=== PATIENT | female | born 2000 | race Caucasian/White ===

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

== ENCOUNTER 2021-06-17 17:10 | Emergency (ER) | payer BC, OTHER, SELFPAY ==
--- NOTE | ~2021-06-17 | US_ITS ---
EXAMINATION: US OB <=14 wk fetus w TV DATE: 06/17/2021 23:26 INDICATION: Bleeding during first trimester TECHNIQUE: Real-time pelvic transabdominal and transvaginal ultrasound was performed. COMPARISON: None. FINDINGS: The uterus measures 6.6 x 5.4 x 3.8 cm. There is an intrauterine gestational sac. There is a 1.3 x 1.0 x 0.9 cm hypoechoic area adjacent to the gestational sac. A yolk sac is identified. Feta l heart motion is identified measuring 133 beats per minute (bpm) by M-mode Doppler. The crown rump length measures 6 mm , which correlates with an estimated gestational age of 6 weeks and 3 day(s ) (+/-) 4 day(s). The ovaries are not visualized however no adnexal abnormality is seen. There is no free fluid in the pelvis. IMPRESSION: 1. Live intrauterine with an estimated gestational age of 6 weeks and 3 day(s) (+/-) 4 day( s) and an estimated delivery date of 02/07/2022. 2. Complex hypoechoic area adjacent to the gestational sac which could reflect subchronic hematoma or possible failed twin . Reviewed, dictated and finalized at location [facility]. 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 Live intrauterine with an estimated gestational age of 6 weeks and 3 day(s) (+/-) 4 day(s) and an estimated delivery date of 02/07/2022. 2. Complex hypoechoic area adjacent to the gestational sac which could reflect subchronic hematoma or possible failed twin .
[2021-06-17 18:00] VITALS: BP 127/83; PULSE 110; RESP 16; TEMP 36.7; O2SAT 100
--- NOTE | 2021-06-17 20:15 | ED.FEMALEGU ---
HPI - Female Genitourinary General Chief complaint: Vaginal Bleeding Stated complaint: /vb Time Seen by Provider: 06/17/21 20:14 Source: patient Mode of arrival: ambulatory Limitations: no limitations History of Present Illness HPI Narrative: Patient is 20 years old white female, presents with vaginal bleeding and lower abdominal cramps. Last menstrual period was April 25, 2021. Patient is 0 para 0 0. Patient reports vomiting. Patient still me that home test came back positive. Patient is not vaccinated for COVID. Patient does not know how much bleeding she have, does not use pads, denies any blood clots. Related Data Allergies Allergy/AdvReac Type Severity Reaction Status Date / Time No Known Allergies Allergy Unknown Uncoded 06/17/20 21:04 Review of Systems Review of Systems: CONSTITUTIONAL: Denies fever, chills, or sweats. EYES: Denies visual changes, redness, or discharge. ENT: Denies rhinorrhea, congestion, sore throat, or otalgia. CARDIOVASCULAR: Denies chest pain, palpitations, or edema. RESPIRATORY: Denies cough or dyspnea. GASTROINTESTINAL: Denies abdominal pain, nausea, vomiting, or diarrhea. GENITOURINARY: Denies dysuria or hematuria. SKIN: Denies rash or itching. MUSCULOSKELETAL: Denies back pain, joint pain, or myalgia. NEUROLOGIC: Denies headache, numbness, or weakness. PSYCHIATRIC: Denies anxiety or depression. PMFSH Past Medical History Medical History Ovarian cyst Surgical History Surgical History H/O ovarian cystectomy Family History Family History Grandparent Diabetes mellitus Hypertension Mother Hypertension Social History Social History Years smoked: 0 Smoking status: Current every day smoker Tobacco type: e-cigarettes/vaping Alcohol intake: never Substance use: current Substance use type: marijuana Last use: 06/17/2020 Gender identity (if verbalized by the patient): Female Spiritual care concerns: No Exam Narrative: General appearance: Well-developed, well-nourished Skin: Normal color Head: Normocephalic, nontraumatic Eyes: Clear conjunctiva ENT: Oropharynx normal, ears normal, nose normal Neck: Supple, nontender Chest and respiratory: Airway patent, no respiratory distress, no accessory muscle use Heart: Regular rate/rhythm Abdomen: Soft, nontender, no organomegaly, quiet bowel sounds Vascular: Normal peripheral pulses, normal capillary refill. Musculoskeletal: Normal range of motion, nontender back Neurologic: Alert and oriented ?3, CRYSTALLOGRAPHER is normal as tested, no gross motor deficit : External Female Exam: normal external appearance and other (No blood in the vaginal pouch) Speculum Exam - Vagina: normal appearance of the vagina Speculum Exam - Cervix: normal appearance of the cervix Bimanual exam- vagina & uterus: normal bimanual exam Bimanual Exam- Adnexa, other: normal adnexae Course Course Emergency Course: Stable Vital Signs Vital signs: Vital Signs Temperature 36.7 C 06/17/21 18:00 Pulse Rate 110 H 06/17/21 18:00 Respiratory Rate 16 06/17/21 18:00 Blood Pressure 127/83 06/17/21 18:00 Pulse Oximetry 100 06/17/21 18:00 Temperature 36.7 C 06/17/21 18:00 Pulse Rate 92 06/17/21 23:44 Respiratory Rate 16 06/17/21 23:44 Blood Pressure 102/69 06/17/21 23:44 Pulse Oximetry 96 06/17/21 23:44 MDM - Female Genitourinary MDM Narrative Medical decision making narrative: Vaginal bleeding, ectopic
[2021-06-17] MEDS: ONDANSETRON INJ 4 MG/2 ML VIAL (20:30)
[2021-06-17] MEDS: SODIUM CHLORIDE 0.9% IV 1,000 ML 999 ML (20:30)
[2021-06-17 20:52] LABS: Basophils Percent Auto 0.2 % (0.2-1.2); Hematocrit 40.4 % (37.0-47.0); Hemoglobin 13.6 g/dL (12.0-15.0); Immature Granulocyte Absolute 0.02 K/mm3 (0.00-0.031); Immature Granulocyte Percent A 0.3 % (0-0.5); Lymphocytes Absolute Auto 0.46 K/mm3 (0.9-3.2); Lymphocytes Percent Auto 7.9 % (18.3-44.2); Mean Corpuscular HGB Conc 33.7 g/dl (32-36); Mean Corpuscular Volume 83.3 fl (80-100); Mean Platelet Volume 8.8 fl (7.4-10.4); Monocytes Absolute Auto 0.9 K/mm3 (0.1-0.6); Monocytes Percent Auto 15.1 % (2.6-8.5); Neutrophils Absolute Auto 4.5 K/mm3 (1.3-6.7); Neutrophils Percent Auto 76.5 % (45.5-73.1); Platelet Count Result 267 k/mm3 (150-375); Red Blood Count 4.85 M/mm3 (4.2-5.4); White Blood Count 5.8 K/mm3 (4.5-10.0)
[2021-06-17 21:20] VITALS: BP 132/74; PULSE 100; RESP 18; O2SAT 99
[2021-06-17] MEDS: SODIUM CHLORIDE 0.9% IV 1,000 ML 999 ML IV CONT (21:59)
--- NOTE | 2021-06-17 22:12 | PC.NURSE ---
THIS MARKETING SERVICES VICE PRESIDENT CALLED RADIOLOGY TO [facility] TO COME IN FOR ULTRASOUND TO RULE OUT ECTOPIC @[id number].
[2021-06-17 23:44] VITALS: BP 102/69; PULSE 92; RESP 16; O2SAT 96
[2021-06-18] MEDS: AMOXICILLIN 500 MG CAPSULE PO (01:05)
[2021-06-18] MEDS: AMOXICILLIN 250 MG CAP PO (01:06)
[2021-06-18 01:08] VITALS: BP 111/66; PULSE 73; RESP 16; O2SAT 100
== END 2021-06-18 01:10 | disposition home or self-care (01) ==
PROVIDERS: Emergency Provider Emergency Medicine; PCP Family Medicine
DX: O20.0 Threatened abortion (principal); O23.41 Unspecified infection of urinary tract in pregnancy, first trimester; Z3A.01 Less than 8 weeks gestation of pregnancy
CPT/HCPCS: 36415; 76801; 76817; 84702; 85025; 85461; 96361; 96374; 99284; A9270; J2405; J7030

== ENCOUNTER 2022-02-11 09:07 | Inpatient (IN) | payer OTHER, SELFPAY ==
--- NOTE | 2022-02-03 14:46 | PC.NURSE ---
Patient states she has rods and screws in back from neck to just above tailbone because of scoliosis--Dr Rivera talked with patient --Informed patient she would not be given epidural because of the rods in her back due to high possibility of infections if rods are exposed to air. Patient told she will be given pain med through IV during labor--Patient verbalized her understanding
[2022-02-11] VITALS (145 sets, daily range): BP systolic 118–146; BP diastolic 58–108; PULSE 57–122; RESP 12–16; TEMP 36.6–37.1; O2SAT 83–100; BMI 37.7
--- NOTE | 2022-02-11 09:07 | LDADM ---
This patient, Leanna Smalls, was admitted for SROM at 0200 this AM to Labor 106 on 02/11/22 at 09:07. Plans for labor, pain management and were discussed with patient. Patient/family oriented to hospital policies and general routines including ID bracelet, bed and alarms, visiting hours, pain management, procedures, bathroom and other care routines, personal items, smoking policy, room service/diet and guest tray routines, infant security routines, and visiting hours. Patient/Family are encouraged to report perceived risks to care and to ask questions if they do not understand what they are told or what they should do. See OBIX for further documentation.
--- NOTE | 2022-02-11 10:52 | PM.IMHP ---
H&P: HPI History of Present Illness Date/Time: 02/11/22 10:52 Chief Complaint: Labor at term Narrative: 21-year-old 1 para 0 with an EDC of 02/09/2022 confirmed by 8 week ultrasound presents with spontaneous rupture membranes of meconium fluid prior to admission has been uncomplicated she is positive for group B strep. [facility] Past Medical History Medical History Ovarian cyst Surgical History Surgical History H/O ovarian cystectomy Family History Family History Grandparent Diabetes mellitus Hypertension Mother Hypertension Social History Social History Years smoked: 0 Smoking status: Current every day smoker Tobacco type: e-cigarettes/vaping Alcohol intake: never Substance use: current Substance use type: marijuana Last use: 11/02/21 Gender identity (if verbalized by the patient): Female Spiritual care concerns: No Meds Home Medications and Allergies Home Medications Medication Instructions Recorded Confirmed Type prenat.vits,carla,[id number] 1 tablet PO DAILY 02/03/22 02/03/22 History Allergies Allergy/AdvReac Type Severity Reaction Status Date / Time hydrocortisone Allergy Unknown Verified 02/03/22 14:21 Vital Signs Vital Signs - 24 hr 02/11/22 10:39 02/11/22 10:44 02/11/22 10:45 Pulse Oximetry 99 100 100 02/11/22 10:50 02/11/22 10:51 Pulse Oximetry 100 99 Exam Const: General: cooperative, healthy appearing and comfortable Nutritional Appearance: average body habitus Cardio: Rate: regular rate Rhythm: regular rhythm GI: Inspection: normal to inspection : External Female Exam: normal external appearance Speculum Exam - Vagina: normal appearance of the vagina Speculum Exam - Cervix: normal appearance of the cervix ( 3Cm with meconium fluid FHTs reassuring) Assessment and Plan Assessment and plan (1) Term : Code(s): Z34.90 - Encounter for supervision of normal , unspecified, unspecified trimester Status: Acute (2) Group beta Strep positive: Code(s): B95.1 - Streptococcus, group B, as the cause of diseases classified elsewhere Status: Acute Plan spontaneous vaginal delivery is expected. She is not an epidural candidate due to the rods in her back. Group B strep prophylaxis is being undertaken. Will make peds aware of meconium-stained
[2022-02-11 11:12] LABS: Basophils Percent Auto 0.3 % (0.2-1.2); Eosinophils Absolute Auto 0.1 K/mm3 (0-0.3); Eosinophils Percent Auto 0.8 % (0-4.4); Hematocrit 34.2 % (37.0-47.0); Hemoglobin 11.1 g/dL (12.0-15.0); Immature Granulocyte Absolute 0.08 K/mm3 (0.00-0.031); Immature Granulocyte Percent A 0.6 % (0-0.5); Lymphocytes Absolute Auto 2.31 K/mm3 (0.9-3.2); Mean Corpuscular HGB Conc 32.5 g/dl (32-36); Mean Corpuscular Hemoglobin 27.6 pg (26-34); Mean Corpuscular Volume 85.1 fl (80-100); Mean Platelet Volume 9.2 fl (7.4-10.4); Monocytes Absolute Auto 1.1 K/mm3 (0.1-0.6); Monocytes Percent Auto 7.3 % (2.6-8.5); Neutrophils Absolute Auto 10.8 K/mm3 (1.3-6.7); Platelet Count Result 286 k/mm3 (150-375); Red Blood Count 4.02 M/mm3 (4.2-5.4); Red Cell Distribution Width 13.7 % (11.5-14.5); White Blood Count 14.4 K/mm3 (4.5-10.0)
[2022-02-11] MEDS: LACTATED RINGERS 1,000 ML 125 ML IV CONT ×3 (11:16→18:44)
[2022-02-11] MEDS: AMPICILLIN 2 GM/NS 100 ML 2 GM/100 ML BAG IVPB (11:16)
[2022-02-11] MEDS: OXYTOCIN 30 UNITS/NS 500 ML 30 UNITS/500 ML BAG IV CONT (11:28)
[2022-02-11 13:02] LABS: Amphetamine Screen Urine Negative (Negative); Barbiturate Screen Urine Negative (Negative); Benzodiazepines Screen Urine Negative (Negative); Cannabinoid Screen Urine Positive (Negative); Cocaine Screen Urine Negative (Negative); Methadone Screen Urine Negative (Negative); Opiate Screen Urine Negative (Negative); Phencyclidine Screen Urine Negative (Negative)
[2022-02-11] MEDS: ONDANSETRON INJ 4 MG/2 ML VIAL IV PUSH ×2 (14:25→19:39)
[2022-02-11] MEDS: AMPICILLIN 1 GM/NS 50 ML 1 GM/50 ML BAG IVPB ×3 (15:33→23:39)
[2022-02-11] MEDS: fentaNYL CITRATE INJ (*CRX) 100 MCG/2 ML VIAL 50 MCG IV PUSH ×2 (16:04→17:46)
[2022-02-11] MEDS: fentaNYL CITRATE INJ (*CRX) 100 MCG/2 ML VIAL IV PUSH ×4 (19:24→23:38)
[2022-02-11] MEDS: diphenhydrAMINE HCl INJ 50 MG/ML VIAL 25 MG IV PUSH (20:45)
[2022-02-12] VITALS (26 sets, daily range): BP systolic 77–140; BP diastolic 42–123; PULSE 57–132; RESP 16–18; TEMP 36.2–36.8; O2SAT 97–100
[2022-02-12] MEDS: LACTATED RINGERS 1,000 ML 125 ML IV CONT (00:19)
[2022-02-12] MEDS: fentaNYL CITRATE INJ (*CRX) 100 MCG/2 ML VIAL IV PUSH ×2 (01:29→02:45)
[2022-02-12] MEDS: ONDANSETRON INJ 4 MG/2 ML VIAL IV PUSH (01:35)
[2022-02-12] MEDS: AMPICILLIN 1 GM/NS 50 ML 1 GM/50 ML BAG IVPB (03:28)
[2022-02-12] MEDS: METHYLERGONOVINE MALEATE 0.2 MG/ML VIAL IM (04:18)
--- NOTE | 2022-02-12 04:30 | PM.OBPRVD ---
OB - Delivery Note Procedure Delivery date: 02/12/22 Events: Positive Group B Strep (GBS) Induction method: None Delivery augmentation: Pitocin Delivery monitor: External Uterine and Internal FHT Route of delivery: Episiotomy description: None Laceration Description: None Quantitative Blood Loss (ml): 359 Anesthesia type: None Disposition: Floor [place] Baby Date of : 02/12/22 Time of : 04:06 Weeks of gestation at delivery: 40 Infant gender: Female Weight (pounds): 7 Weight (ounces): 6 presentation: vertex position: Right Occiput Anterior Placenta delivery description: Spontaneous Cord Vessel Description: 3 Vessels score one minute: 9 score five minutes: 10 Narrative: amp x 5 for gbs
[2022-02-12] MEDS: OXYTOCIN 30 UNITS/NS 500 ML 30 UNITS/500 ML BAG 125 UNITS IV CONT (04:49)
[2022-02-12] MEDS: ACETAMINOPHEN 325 MG TABLET 650 MG PO (05:34)
[2022-02-12 07:04] LABS: Rapid Plasma Reagin Non-Reactive (NonReactive)
--- NOTE | 2022-02-12 08:12 | OBPPTRN ---
Patient transferred to post room #288 via wheelchair. Support person present. Oriented to unit, room, information board, rooming in, admission packet and security measures. Patient verbalizes understanding.
[2022-02-12] MEDS: IBUPROFEN 600 MG TABLET PO (08:32)
[2022-02-12] MEDS: BENZOCAINE 20% AER SPR (*SP) 56 GM CAN 1 SPRAY TOPICAL (08:33)
--- NOTE | 2022-02-12 21:00 | PC.NURSE ---
Patient viewed the discharge video Mother & Baby Care, The First Two Weeks . Patient was given the opportunity and encouraged to ask questions. Patient verbalized understanding of information shared and has been given the mother/baby guide for home reference.
[2022-02-13] VITALS: BP 132/72; PULSE 98; RESP 18; TEMP 35.9
[2022-02-13 05:56] LABS: Hematocrit 22.4 % (37.0-47.0); Hemoglobin 7.2 g/dL (12.0-15.0)
[2022-02-13 08:00] VITALS: BP 124/74; PULSE 102; RESP 16; TEMP 36.4; O2SAT 100
--- NOTE | 2022-02-13 09:46 | PM.OBPNVD ---
OB - PN: Subj Subjective Date/time seen: 02/13/22 09:46 Narrative: Pain OK. OB - PN: Obj Data Labs CBC & Chem 7: 02/13/22 05:39 Labs: Laboratory Results - last 24 hr 02/13/22 05:39 Hgb 7.2 L D Hct 22.4 L OB - PN A/P Plan Comments: A: PPD#1, doing well. P: Routine care. Plan home tomorrow. Exam Psych: Other: AVSS ABD soft, nontender, fundus firm EXT nontender
[2022-02-13] MEDS: DOCUSATE SODIUM 100 MG CAPSULE PO ×2 (10:10→17:11)
[2022-02-13] MEDS: POLYSACCHARIDE IRON COMPLEX 150 MG CAPSULE PO ×2 (10:10→17:11)
[2022-02-13] MEDS: IBUPROFEN 600 MG TABLET PO ×2 (13:52→19:25)
[2022-02-13 20:30] VITALS: BP 127/70; PULSE 90; RESP 18; TEMP 36.8; O2SAT 100
[2022-02-14 08:25] VITALS: BP 126/82; PULSE 86; RESP 16; TEMP 36.6; O2SAT 100
[2022-02-14] MEDS: DOCUSATE SODIUM 100 MG CAPSULE PO (08:27)
[2022-02-14] MEDS: POLYSACCHARIDE IRON COMPLEX 150 MG CAPSULE PO (08:27)
[2022-02-16 11:19] VITALS: BP 127/81; PULSE 92; RESP 16; TEMP 36.8; O2SAT 100
--- NOTE | 2022-02-18 07:41 | PM.DS ---
DS: Admitting Diagnosis Discharge Date 02/14/22 Admitting Diagnosis term iup/gbs pos DS: Discharge Diagnosis Discharge Diagnosis (1) Group beta Strep positive: Code(s): B95.1 - Streptococcus, group B, as the cause of diseases classified elsewhere Status: Acute (2) Term : Code(s): Z34.90 - Encounter for supervision of normal , unspecified, unspecified trimester Status: Acute DS: Summary Hospital Course Reason for hospitalization: Her with group B strep Hospital Course: Patient was admitted underwent spontaneous vaginal delivery group B strep prophylaxis. 48hour course was unremarkable. She remained afebrile. She was up, ambulating, generally Time Spent with Patient Time attestation: Total time spent providing and/or coordinating discharge services: Discharge Plan Discharge Attending physician on discharge: Andrew Alvares Consulting providers: Yousif Mistry Discharging Clinician: Andrew Alvares Patient Disposition: Home, Self-Care Activity: pelvic rest Diet: regular Discharge Instructions: Education: Mom and Baby Guide Given to: Mother Follow-Up: Call your delivering provider's office for an appointment to be seen in: 6 Weeks Mom and baby should come to the [facility] for the follow-up appointment. Appointment Date/Time: February 16, 2022 at 11:00 am What to expect at your follow-up visit: Blood Pressure Check Physical Assessment Call [phone] if you are unable to keep your appointment time. BREAST CARE: * Wear a snug supportive bra. * For engorgement discomfort: Bottle Feeding: * May apply ice packs PERINEAL CARE: * Until bleeding stops, use your angelique bottle after urinating * Change your pad frequently throughout the day * You may take sitz baths several times a day (fill your bathtub with warm water and soak for 20 minutes.) Do NOT bathe in the water * No tub baths until seen by your physician - You may shower ACTIVITY: * Rest as much as possible. * Do not exercise or lift anything heavier than your baby (such as laundry or other children.) * Avoid stairs or driving as much as possible. * Do not put anything into the vagina. No douching, tampons, or sexual activity until seen by physician. NOTIFY PHYSICIAN IF YOU HAVE ANY QUESTIONS OR IF ANY OF THE FOLLOWING SYMPTOMS OCCUR: * If your episiotomy or incision becomes red, swollen, or more painful than what you have experienced in the hospital. * If your vaginal bleeding becomes foul smelling. * If your vaginal bleeding becomes more heavy than a period or if your bleeding changes from pink to bright red. However, you may pass an occasional walnut-sized clot once or twice for the first week . * If you experience a sharp, shooting pain in you calves. * If you discover a hard, reddened area on your breast or if you experience flu-like symptoms. DIET: * Eat regular, well-balanced meals. * Drink plenty of fluids daily. Call or return if temperature above 100.4? F, increased abdominal pain, increased vaginal bleeding or any new problems. Patient Instructions: Antibiotic Form Stand Alone Forms: General Discharge Information Follow-up/Referrals: Andrew Alvares MD [Physician] - 6 Weeks Discharge Medications: New ferrous sulfate 325 mg (65 mg iron) tablet 325 mg PO DAILY Qty: 30 0RF ibuprofen 600 mg tablet 600 mg PO Q6H PRN (Reason: cramps) Qty: 30 0RF Continued prenat.vits,carla,[id number] Tablet 1 tablet PO DAILY Date of admission: 02/11/22 09:07 Primary Care Provider: PHYSICIAN,BURGLAR ALARM INSTALLER Admitting Provider: Andrew Alvares Attending physician on admission: Andrew Alvares Condition: Stable
== END 2022-02-14 10:24 | disposition home or self-care (01) | DRG 560 ==
LOC: ANHLDR 10:14 → ANHOB2 02-12 08:16
PROVIDERS: Admitting Provider Obstetrics & Gynecology; Visit Provider Obstetrics & Gynecology
DX: O99.824 Streptococcus B carrier state complicating childbirth (principal); O77.0 Labor and delivery complicated by meconium in amniotic fluid; O99.334 Smoking (tobacco) complicating childbirth; F17.290 Nicotine dependence, other tobacco product, uncomplicated; O62.3 Precipitate labor; O76 Abnormality in fetal heart rate and rhythm complicating labor and delivery; Z3A.40 40 weeks gestation of pregnancy; Z37.0 Single live birth
CPT/HCPCS: 36415; 80307; 84112; 85014; 85018; 85025; 86592; 86850; 86900; 86901; A9270; J0290; J1200; J2210; J2405; J2590; J3010; J7120

== ENCOUNTER 2023-05-26 16:58 | Outpatient (RCR) | payer OTHER, SELFPAY ==
--- NOTE | 2023-05-31 14:52 | OPREHPOC ---
Outpatient Therapy Plan of Care This is a Multidisciplinary Plan of Care that may contain components documented by all disciplines (PT, OT, and ST.) PT Problem 1 PT Problem #1 Knowledge Deficit PT Goal 1 Goal independent and compliant with HEP Target Visit 6 PT Problem 2 PT Problem #2 Pain PT Goal 1 Goal decrease pain at worst to 6/10 or less in the lower back and R hip. Target Visit 12 PT Problem 3 PT Problem #3 Impaired Strength PT Goal 1 Goal 1. 4+/5 or better bilateral hip strength overall 2. patient to perform 10 bridges in supine to neutral hip position Target Visit 12 PT Problem 4 PT Problem #4 Impaired Range of Motion PT Goal 1 Goal 1. improve lumbar flexion to ankle without increased pain 2. improve lumbar extension, sidebending to 20 degrees each Target Visit 12 PT Problem 5 PT Problem #5 Impaired Functional Mobil PT Goal 1 Goal oswestry to diaply less than 50% functional deficits patient to get on the ground to play with child for 1 hour improve step/stride length bilaterally to improve gait mechanics, speed, and endurance Target Visit 12
--- NOTE | 2023-05-31 14:52 | PTOPEVAL1 ---
Assessment and note entered by JT File, PT Evaluation Information Assessment Status Evaluation Diagnosis scoliosis Onset 05/20/23 Subjective Information patient reports she is having really bad spine and hip pain. she reports mostly the R hip is the worst. she reports the pain prevents her from moving much or wanting to move. she reports she has a 1 year old at home she is unable to do much with due to the pain in her back and hips. she reports she is unable to get on the floor, bend over the tub, or lift her much due to the pain. she reports she has not had any xrays. she reports she is seeing a specialist in june. she reports she is seeing Dr. Bassam Casillas. she reports she has been having back issues since she was 14. she reports she had surgery for scoliosis (14 yo and 18 yo). she reports she dropped out of school since the pain was so bad. she reports she is unable to work due to the pain, and is really struggling. she reports she is nervous about therapy because in the past it made her pain worse . she is taking a muscle relaxor and anti- inflamatory that was prescribed by her PCP. Assessment PT Clinical Summary ms. valenzuela is 22 yo woman who presents to skilled PT services for evaluation and treatment of lower back and R hip pain. she presents today with core and LE weakness, decreased rom, and severe pain in the lower back limiting her performance of home activities/interaction with her daughter. she would benefit from continued skilled PT to address her objective/functional deficits to improve her quality of life. Plan of Care Interventions Electrical Stimulation,Gait Training,Hot Pack/Cold Pack,Manual Therapy,Neuro Re-education,Patient/ Caregiver Educati,Therapeutic Activities, Therapeutic Exercise PT Services Indicated Yes Treatment Frequency and 2x weekly for 12 visits Duration These treatments will address the objective and functional deficits as defined above. The patient will be advanced safely and appropriately in order for the patient to progress towards his/her prior level of function. Additional exercises will be introduced and as well as a comprehensive home exercise program upon discharge, if needed, ?to ensure carryover of functional gains achieved in the clinic. This treatment plan has been reviewed and agreement upon by the patient.
--- NOTE | 2023-07-08 08:28 | OPREHPOC ---
Outpatient Therapy Plan of Care This is a Multidisciplinary Plan of Care that may contain components documented by all disciplines (PT, OT, and ST.) PT Problem 1 PT Problem #1 Knowledge Deficit PT Goal 1 Goal independent and compliant with HEP Target Visit 6 Progress Met PT Problem 2 PT Problem #2 Pain PT Goal 1 Goal decrease pain at worst to 6/10 or less in the lower back and R hip. Target Visit 12 Progress Not Met PT Problem 3 PT Problem #3 Impaired Strength PT Goal 1 Goal 1. 4+/5 or better bilateral hip strength overall 2. patient to perform 10 bridges in supine to neutral hip position Target Visit 12 Progress Not Met PT Problem 4 PT Problem #4 Impaired Range of Motion PT Goal 1 Goal 1. improve lumbar flexion to ankle without increased pain 2. improve lumbar extension, sidebending to 20 degrees each Target Visit 12 Progress Not Met PT Problem 5 PT Problem #5 Impaired Functional Mobil PT Goal 1 Goal oswestry to diaply less than 50% functional deficits patient to get on the ground to play with child for 1 hour improve step/stride length bilaterally to improve gait mechanics, speed, and endurance Target Visit 12 Progress Not Met
--- NOTE | 2023-07-08 08:31 | PTOPDC ---
Assessment and note entered by Dione Lucas DPT Evaluation Information Assessment Status Discharge Diagnosis scoliosis Onset 05/20/23 Subjective Information patient reports that HEP tends to relieve pain. she reports her function at home is about the same . She reports she saw a specialist who gave her new pain meds but they are making her sick. She does not have an appointment with pain management until October. Reported Pain Level Pain Score 6: Self Report Assessment PT Clinical Summary Ms. Smalls was seen for 10 visits of skilled PT. She continued to have significant pain and limitations with all daily activities. She has not met any goals during POC. She is independent with HEP. She will be discharged at this time due to limited progress made. Plan of Care PT Services Indicated No
== END 2023-07-07 15:14 | disposition home or self-care (01) ==
LOC: CHSPT 16:58
PROVIDERS: PCP Nurse Practitioner; Visit Provider Nurse Practitioner
DX: M41.9 Scoliosis, unspecified (principal); M54.9 Dorsalgia, unspecified
CPT/HCPCS: 97014; 97110; 97140; 97162; G0283

== ENCOUNTER 2023-11-09 08:15 | Emergency (ER) | payer OTHER, SELFPAY ==
[2023-11-09] VITALS (9 sets, daily range): BP systolic 104–134; BP diastolic 74–86; PULSE 56–105; RESP 14–24; TEMP 36.6–36.8; O2SAT 98–100
--- NOTE | 2023-11-09 08:25 | ED.ALLEREA ---
HPI - Allergic Reaction General Chief complaint: Allergic Reaction Stated complaint: FACIAL SWELLING, N-V Time Seen by Provider: 11/09/23 08:24 Source: patient Mode of arrival: ambulatory Limitations: no limitations History of Present Illness HPI narrative: 23-year-old female with Scoliosis status post corrective surgery, no prior history of allergies, atopy presents to the ER with -- erythematous rash on the face with itching which started this morning. The patient took 1 dose of Celebrex last night. -- nausea with 1 episode of vomiting -- numbness and tingling of her fingers. The patient is hyperventilating. Blood pressure is stable. No wheezing. No throat or tongue swelling. No abdominal pain. MD complaint: allergic reaction and facial swelling Onset (ago): hour(s) ( 2 hours) Exposure: medication ( patient took Celebrex last night) Symptoms: rash, itching and facial swelling Severity: moderate Treatment prior to arrival: benadryl Previous Allergic Reaction History: none Related Data Allergies Allergy/AdvReac Type Severity Reaction Status Date / Time celecoxib Allergy Hives Verified 11/09/23 08:21 hydrocortisone Allergy Unknown Verified 11/09/23 08:21 Review of Systems Constitutional: Constitutional: Reports as per HPI and Reports no additional constitutional complaints Eyes: Eyes: Reports as per HPI and Reports no additional eye complaints ENT: Reports system reviewed and no additional complaints, except as documented and Reports as per HPI Cardiovascular: Cardiovascular: Reports as per HPI and Reports no additional cardiovascular complaints Respiratory: Respiratory: Reports as per HPI and Reports no additional respiratory complaints Gastrointestinal: Gastrointestinal: Reports as per HPI, Reports no additional gastrointestinal complaints, Reports nausea and Reports vomiting Genitourinary: Genitourinary: Reports no additional female genitourinary complaints and Reports as per HPI Musculoskeletal: Musculoskeletal: Reports no additional musculoskeletal complaints and Reports as per HPI Integumentary/Breasts: Comments: erythematous rash on the face with itching Neurologic: Reports system reviewed and no additional complaints, except as documented and Reports as per HPI Psychiatric: Psychiatric: Reports no additional psychiatric complaints and Reports as per HPI Endocrine: Endocrine: Reports no additional endocrine complaints and Reports as per HPI Hematologic/Lymphatic: Hematologic/Lymphatic: Reports no additional hematologic/lymphatic complaints and Reports as per HPI Allergic/Immunologic: Allergic/Immunologic: Reports no additional allergic/immunologic complaints and Reports as per HPI [facility] Past Medical History Medical History Ovarian cyst Surgical History Surgical History H/O ovarian cystectomy Family History Family History Grandparent Diabetes mellitus Hypertension Mother Hypertension Father Depression Alcoholism Social History Social History Smoking packs per day: 1 Smoking cigarettes per day: 20.0 Years smoked: 1 Smoking pack-years: 1.00 Smoking status: Current every day smoker Tobacco type: e-cigarettes/vaping Alcohol intake: never Substance use: current Substance use type: marijuana Do You Feel Safe in your Home?: Yes Lack of Transportation: No Lack of Food: Never True Current Housing: I Have Housing Concerned About Future Housing: No Difficulty Paying Gas/Electric Bills: No Difficulty Paying for Meds: No Currently Unemployed: No Education: Decline to Answer Difficulty w/ Childcare or Family Care: No Gender identity (if verbalized by the patient): Female Spiritual care concerns: No Exam Narrative:
[2023-11-09] MEDS: diphenhydrAMINE HCl INJ 50 MG/ML VIAL 25 MG IM (08:34)
[2023-11-09] MEDS: methylPREDNISolone SOD SUCC 125 MG VIAL IM (08:34)
[2023-11-09] MEDS: FAMOTIDINE 20 MG TABLET PO (08:38)
== END 2023-11-09 09:33 | disposition home or self-care (01) ==
PROVIDERS: Emergency Provider Internal Medicine Critical Care Medicine
DX: L23.9 Allergic contact dermatitis, unspecified cause (principal); F17.290 Nicotine dependence, other tobacco product, uncomplicated
CPT/HCPCS: 96372; 99284; A9270; J1200; J2919

== ENCOUNTER 2023-11-19 09:11 | Outpatient (CLI) | payer OTHER, SELFPAY ==
--- NOTE | ~2023-11-19 | XR_ITS ---
XR hip BI 2V w AP pelvis DATE: 11/19/2023 10:24 INDICATION: Chronic bilateral hip pain TECHNIQUE: AP pelvis. AP and lateral views of each hip. COMPARISON: None FINDINGS: Pedicle screws and rods are noted at L4, with interval disc fusion at L3-4. Degenerative disease at L4-5. Normal alignment of the pubic symphysis and sacroiliac joints. No pelvic fracture or bone destruction. No fracture or dislocation, avascular necrosis or bone destruction of either hip. Hip joint spaces ar e symmetric and well preserved. IMPRESSION: No significant abnormality of the pelvis or either hip Reviewed, dictated and finalized at location A.
--- NOTE | ~2023-11-19 | XR_ITS ---
XR lumbar spine 6V w bending DATE: 11/19/2023 10:23 INDICATION: Chronic low back pain. Postlaminectomy syndrome. TECHNIQUE: AP, lateral, cone-down lateral lumbosacral and bilateral oblique views. Flexion and extens ion lateral views. COMPARISON: 03/22/2017 lumbar spine FINDINGS: Bilateral thoracolumbar spinal rods and pedicle screws are noted from T3 to L4. Interval interbody surgical fusion at L3-4 since 03/22/2017. Increased moderately severe degenerative disc disease at L4-5 since 03/22/2017. There is chronic widening of the posterior portion of the L4-5 disc space compared to the much more n arrowed anterior portion of the L4-5 interspace, also present on 03/22/2017. There is slightly increas ed posterior widening at the L4-5 interspace in flexion compared to extension. There is 23 degrees levoscoliosis measured from T11 to L4. No fracture or bone destruction of the lumbar spine is evident. The sacroiliac joints are intact. IMPRESSION: Interval interbody surgical fusion at L3-4 and increased moderately severe degenerative d isease at L4-5 since 03/22/2017 Bilateral T3-L4 spinal rods and pedicle screws 23 degrees levoscoliosis from T11 to L4 Reviewed, dictated and finalized at location A. IMPRESSION: Interval interbody surgical fusion at L3-4 and increased moderately severe degenerative disease at L4-5 since 03/22/2017 Bilateral T3-L4 spinal rods and pedicle screws 23 degrees levoscoliosis from T11 to L4
--- NOTE | ~2023-11-19 | MR_ITS ---
EXAMINATION: MR lumbar spine wo/w con DATE: 11/19/2023 10:28 INDICATION: Postlaminectomy syndrome, elsewhere classified. Low back pain. TECHNIQUE: Magnetic resonance imaging (MRI) of the lumbar spine was performed without and with 15 mL MultiHance intravenous contrast. COMPARISON: Lumbar spine MRI 12/13/2017, lumbar spine radiographs 11/19/2023 FINDINGS: There is 20 degrees levoscoliosis of thoracolumbar spine. There is focal kyphosis at L4-L5. There are changes of posterior fusion procedure from the thoracic spine to L4 with pedicle screws. T here are changes of anterior fusion procedure at L3-L4 with an interbody device. There is severely de creased disc height at L4-L5 with endplate remodeling. The distal spinal cord signal intensity is nor mal. The conus medullaris is at L1. The following disc levels are specifically discussed: L1-L2: The disc does not extend beyond the endplate margin. There is no facet joint hypertrophy. Ther e is no neural foraminal stenosis. There is no central canal stenosis. L2-L3: The disc does not extend beyond the endplate margin. There is no facet joint hypertrophy. Ther e is no neural foraminal stenosis. There is no central canal stenosis. L3-L4: There is no facet joint hypertrophy. There is no neural foraminal stenosis. There is no centra l canal stenosis. L4-L5: The disc is bulging and has an annular fissure. There is severe bilateral facet joint osteoart hritis. There is moderate bilateral neural foraminal stenosis. There is mild central canal stenosis. L5-S1: The disc does not extend beyond the endplate margin. There is severe bilateral facet joint ost eoarthritis. There is mild left neural foraminal stenosis. There is no central canal stenosis. IMPRESSION: 1. Severe lower lumbar spondylosis. 2. Anterior fusion procedure at L3-L4. 3. Posterior fusion procedure from the thoracic spine to L4. 4. Thoracolumbar levoscoliosis. Reviewed, dictated and finalized at location E.
--- NOTE | ~2023-11-19 | XR_ITS ---
XR thoracic spine 3V DATE: 11/19/2023 10:24 INDICATION: Chronic thoracic back pain TECHNIQUE: COMPARISON: None FINDINGS: Bilateral thoracic rods and pedicle screws. 29 degrees levoscoliosis measured from T1 to T5. 35 degrees dextroscoliosis measured from T5 to T11. No fracture or bone destruction is evident. No paraspinal soft tissue thickening. IMPRESSION: Bilateral thoracic rods and pedicle screws. 29 degrees levoscoliosis measured from T1 to T5. 35 degrees dextroscoliosis measured from T5 to T11. Reviewed, dictated and finalized at location A.
== END 2023-11-19 09:12 | disposition home or self-care (01) ==
LOC: CHSIMG 09:12
PROVIDERS: Visit Provider Anesthesiology Pain Medicine
DX: G89.29 Other chronic pain (principal); M47.817 Spondylosis without myelopathy or radiculopathy, lumbosacral region; M54.9 Dorsalgia, unspecified; M54.6 Pain in thoracic spine; M25.559 Pain in unspecified hip; M96.1 Postlaminectomy syndrome, not elsewhere classified; M41.85 Other forms of scoliosis, thoracolumbar region; M41.84 Other forms of scoliosis, thoracic region
CPT/HCPCS: 72072; 72114; 72158; 73521; A9577

== ENCOUNTER 2023-12-22 08:39 | Emergency (ER) | payer OTHER, SELFPAY ==
[2023-12-22 08:42] VITALS: BP 134/89; PULSE 114; RESP 20; TEMP 36.2; O2SAT 99
[2023-12-22 08:55] LABS: Appearance Urine Sl Cloudy (Clear); Bilirubin Urine Negative (Negative); Blood Urine 1+ (Negative); Color Urine Yellow (Yellow); Glucose Urine UA Negative (Negative); Ketones Urine Negative (Negative); Leukocyte Esterase Ur 3+ (Negative); Nitrate Urine Negative (Negative); Protein Urine Negative (Negative); Specific Grav Ur 1.015 (1.010-1.020); Urobilinogen Urine 0.2 mg/dL (0.2-1.0)
[2023-12-22 08:58] LABS: Add Urine Microscopic? YES
[2023-12-22 08:59] LABS: Bacteria Urine 2+ /hpf; Squamous Epithelial Cell Urine Few /hpf (Few); WBC Urine 16-20 /hpf (0-3)
--- NOTE | 2023-12-22 09:07 | ED.FEMALEGU ---
HPI - Female Genitourinary General Chief complaint: Urogenital-Female Stated complaint: vag d/c Time Seen by Provider: 12/22/23 08:52 Source: patient Mode of arrival: ambulatory Limitations: no limitations History of Present Illness HPI Narrative: This is a 23-year-old female with a suprapubic tenderness with a green discharge patient denies any high risk sexual exposure. There is no fever chills no flank pain no hematuria. No nausea vomiting no diarrhea constipation. MD elicited complaint: dysuria and vaginal discharge Onset (ago): day(s) Severity: mild Related Data Allergies Allergy/AdvReac Type Severity Reaction Status Date / Time celecoxib Allergy Hives Verified 12/22/23 08:48 hydrocortisone Allergy Unknown Verified 12/22/23 08:48 Review of Systems Review of Systems: All systems reviewed & are unremarkable except as noted in HPI and below PMFSH Past Medical History Medical History Ovarian cyst Surgical History Surgical History H/O ovarian cystectomy Family History Family History Grandparent Diabetes mellitus Hypertension Mother Hypertension Father Depression Alcoholism Social History Social History Smoking packs per day: 1 Smoking cigarettes per day: 20.0 Years smoked: 1 Smoking pack-years: 1.00 Smoking status: Current every day smoker Tobacco type: e-cigarettes/vaping Alcohol intake: never Substance use: current Substance use type: marijuana Do You Feel Safe in your Home?: Yes Lack of Transportation: No Lack of Food: Never True Current Housing: I Have Housing Concerned About Future Housing: No Difficulty Paying Gas/Electric Bills: No Difficulty Paying for Meds: No Currently Unemployed: No Education: Decline to Answer Difficulty w/ Childcare or Family Care: No Gender identity (if verbalized by the patient): Female Spiritual care concerns: No Exam Const: General: healthy appearing and no acute distress Nutritional Appearance: well nourished Orientation/consciousness: patient oriented x3 Neck: Neck: normal visual inspection Chest: Chest palpation & inspection: normal inspection of the chest Cardio: Rate: regular rate Rhythm: regular rhythm GI: GI Palp: Yes Soft to palpation and Yes Tenderness to palpation present (GI) : General: Yes Bladder palpation abnormal and Yes no CVA tenderness Back/Spine/Pelvis: Back: no CVA tenderness Skin: General skin exam: normal color Neuro: General: patient oriented x3 Course Course Emergency Course: Urinalysis shows some patient has you had urinary tract infection presenting antibiotics patient's pharmacy. Vital Signs Vital signs: Vital Signs Oxygen Delivery Room Air 12/22/23 08:39 Temperature 36.2 C L 12/22/23 08:42 Pulse Rate 114 H 12/22/23 08:42 Respiratory Rate 20 12/22/23 08:42 Blood Pressure 134/89 12/22/23 08:42 Pulse Oximetry 99 12/22/23 08:42 Oxygen Delivery Room Air 12/22/23 08:42 MDM - Female Genitourinary Lab Data Labs: Lab Results 12/22/23 Range/Units 08:48 Urine Color Yellow (Yellow) Urine Appearance Sl cloudy A (Clear) Urine pH 6.0 (5.0-8.0) Ur Specific Pratts 1.015 (1.010-1.020) Urine Protein Negative (Negative) Urine Glucose (UA) Negative (Negative) Urine Ketones Negative (Negative) Ur Blood (Man) 1+ H (Negative) Urine Nitrate Negative (Negative) Urine Bilirubin Negative (Negative) Urine Urobilinogen 0.2 (0.2-1.0) mg/dL Ur Leukocyte Esterase 3+ H (Negative) Urine RBC 3-5 H (0-2) /hpf Urine WBC 16-20 H (0-3) /hpf Ur Squamous Epith Cells Few (Few) /hpf Urine Bacteria 2+ H (None) /hpf C. trachomatis (PCR) Pending N. gonorrhoeae (PCR) Pending
[2023-12-22] MEDS: ACETAMINOPHEN 325 MG TABLET 650 MG PO (09:14)
[2023-12-23 20:31] LABS: Chlamydia trachomatis NOT DETECTED (NOT DETECTE); Neisseria gonorrhoeae PCR NOT DETECTED (NOT DETECTE)
--- NOTE | 2023-12-24 13:35 | PC.NURSE ---
[facility] urine culture report: Group b streptococcus isolated. Patient discharged on Macrobid and Flagyl, ERP Dr. Melendez states no change in treatment or any further treatment needed.
== END 2023-12-22 09:20 | disposition home or self-care (01) ==
LOC: CHSED 09:10
PROVIDERS: Emergency Provider Emergency Medicine
DX: N76.0 Acute vaginitis (principal); N30.00 Acute cystitis without hematuria; F17.290 Nicotine dependence, other tobacco product, uncomplicated
CPT/HCPCS: 81001; 87077; 87086; 87088; 87491; 87591; 99283; A9270

== ENCOUNTER 2024-02-07 07:13 | Emergency (ER) | payer OTHER, SELFPAY ==
--- NOTE | ~2024-02-07 | XR_ITS ---
XR lumbar spine 2-3V 02/07/2024 08:00 Indication: Lumbar pain. No new trauma. Procedure: 4 views lumbar spine Comparison: 11/19/2023 and 03/22/2020 seventh Findings: There is interbody surgical fusion at L3-4. There has been progression of degenerative hernandez ge at L4-5 with disc narrowing particularly anterior aspect of the disc space with developing surroun ding sclerosis. There are Raza rods traversing the lower thoracic spine extending to L4. The jimenes perior aspect of the rods and pedicle screws are not visualized. There is levoscoliosis centered at L 2. There is disc narrowing at all lumbar levels. There is fracture there the posterior elements at L4 which appears chronic. Impression: 1: Moderate-severe lumbar spondylosis with progression at L4-5. Reviewed, dictated and finalized at location B. Impression: 1: Moderate-severe lumbar spondylosis with progression at L4-5.
[2024-02-07 07:21] VITALS: BP 126/73; PULSE 73; RESP 22; TEMP 36.4; O2SAT 100
[2024-02-07] MEDS: dexAMETHasone SOD PHOS INJ 10 MG/ML 1 ML VIAL 6 MG IM (07:38)
[2024-02-07 07:41] LABS: Add Urine Microscopic? YES; Appearance Urine Clear (Clear); Bilirubin Urine Negative (Negative); Blood Urine Negative (Negative); Color Urine Light Yellow (Yellow); Glucose Urine UA Negative (Negative); Ketones Urine Negative (Negative); Leukocyte Esterase Ur Trace (Negative); Nitrate Urine Negative (Negative); Protein Urine Negative (Negative); Urobilinogen Urine 0.2 mg/dL (0.2-1.0)
[2024-02-07 07:45] LABS: RBC Urine None seen /hpf (0-2); WBC Urine 0-3 /hpf (0-3)
[2024-02-07 07:46] LABS: Bacteria Urine Trace /hpf; Pregnancy On Board Control Positive; Squamous Epithelial Cell Urine Moderate /hpf (Few); Urine Pregnancy Test Negative
[2024-02-07] MEDS: HYDROcodone/acetaminophen (*CRX) 5-325 MG TABLET 1 TAB PO (07:49)
[2024-02-07] MEDS: CYCLOBENZAPRINE HCL 10 MG TABLET PO (07:50)
--- NOTE | 2024-02-07 08:23 | ED.BACK ---
HPI - Back Pain/Injury General Chief Complaint: Back Pain/Injury Stated Complaint: back pain Time Seen by Provider: 02/07/24 07:20 Source: patient Mode of arrival: ambulatory Limitations: no limitations History of Present Illness HPI Narrative: Patient is a 23 year old female with a significant PMH of lumbar pain. She has chronic lumbar pain. She has spondylosis of the lumbar spine. She has had a spinal fusion of the lumbar spine done in the past. She says that the pain is a 10/10 today and hurts a lot. She did not have any inciting event. she most history today and his amlodipine today. She is seeing pain management and doing physical therapy as well. She has allergy type problems, teeth. She says she takes Tylenol for the pain. MD elicited complaint: back pain Pertinent past history: prior back pain and back surgery Onset (ago): day(s) Timing: constant Severity: severe Pain scale (0-10): 10 Quality: sharp and stabbing Location: lumbar spine Radiation: buttocks Exacerbating factors: movement Relieving factors: none Treatments prior to arrival: acetaminophen Work related injury: No Related Data Allergies Allergy/AdvReac Type Severity Reaction Status Date / Time celecoxib Allergy Hives Verified 02/07/24 07:20 hydrocortisone Allergy Unknown Verified 02/07/24 07:20 Review of Systems Review of Systems: All systems reviewed & are unremarkable except as noted in HPI and below Constitutional: Constitutional: Reports as per HPI Eyes: Eyes: Reports no additional eye complaints ENT: Reports system reviewed and no additional complaints, except as documented Cardiovascular: Cardiovascular: Reports no additional cardiovascular complaints Respiratory: Respiratory: Reports no additional respiratory complaints Gastrointestinal: Gastrointestinal: Reports no additional gastrointestinal complaints Genitourinary: Genitourinary: Reports no additional female genitourinary complaints Musculoskeletal: Musculoskeletal: Reports no additional musculoskeletal complaints Integumentary/Breasts: Skin/Breast: Reports system reviewed and no additional complaints, except as docu Neurologic: Reports system reviewed and no additional complaints, except as documented Psychiatric: Psychiatric: Reports no additional psychiatric complaints Endocrine: Endocrine: Reports no additional endocrine complaints Hematologic/Lymphatic: Hematologic/Lymphatic: Reports no additional hematologic/lymphatic complaints Allergic/Immunologic: Allergic/Immunologic: Reports no additional allergic/immunologic complaints PMFSH Past Medical History Medical History Ovarian cyst Surgical History Surgical History H/O ovarian cystectomy Family History Family History Grandparent Diabetes mellitus Hypertension Mother Hypertension Father Depression Alcoholism Social History Social History Smoking packs per day: 1 Smoking cigarettes per day: 20.0 Years smoked: 1 Smoking pack-years: 1.00 Smoking status: Current every day smoker Tobacco type: e-cigarettes/vaping Alcohol intake: never Substance use: current Substance use type: marijuana Do You Feel Safe in your Home?: Yes Lack of Transportation: No Lack of Food: Never True Current Housing: I Have Housing Concerned About Future Housing: No Difficulty Paying Gas/Electric Bills: No Difficulty Paying for Meds: No Currently Unemployed: No Education: Decline to Answer Difficulty w/ Childcare or Family Care: No Gender identity (if verbalized by the patient): Female Spiritual care concerns: No Exam Const: General: healthy appearing Nutritional Appearance: well nourished Orientation/consciousness: patient oriented x3 HENMT: Head: normal to inspectio
[2024-02-07 09:32] VITALS: BP 120/84; PULSE 53; RESP 18; TEMP 36.4; O2SAT 100
== END 2024-02-07 09:32 | disposition home or self-care (01) ==
PROVIDERS: Emergency Provider Family Medicine
DX: M47.816 Spondylosis without myelopathy or radiculopathy, lumbar region (principal); M54.16 Radiculopathy, lumbar region; F17.290 Nicotine dependence, other tobacco product, uncomplicated
CPT/HCPCS: 72100; 81001; 81025; 96372; 99283; A9270; J1100

== ENCOUNTER 2024-03-30 23:30 | Emergency (ER) | payer OTHER, SELFPAY ==
[2024-03-30 23:31] VITALS: BP 135/106; PULSE 112; RESP 18; TEMP 36.5; O2SAT 97
--- NOTE | 2024-03-30 23:41 | ED.GENADULT ---
HPI - General Adult General Chief complaint: Back Pain/Injury Stated complaint: back pain Time Seen by Provider: 03/30/24 23:41 Source: patient Mode of arrival: ambulatory Limitations: no limitations History of Present Illness HPI narrative: 23-year-old white female with history of chronic back pain with 2 back surgeries 1st being when she was 14-year-old. Patient has a history of chronic lumbar pain spondylosis and spinal fusion the lumbar spine in the past. patient said she has been to 2 different pain management within the last 3 months but has not followed up with either 1 of them. She last saw her old primary care provider 6 months ago now seeing a new 1 as of 2 weeks ago. Complains of persistent pain radiating down her right leg. Denies any problems voiding or stooling numbness or tingling weakness neck pain cough fever sore throat runny nose or any other complaints . She rates her pain as a 10. Smokes marijuana today Related Data Home Medications Medication Instructions Recorded Confirmed medroxyprogesterone 150 mg/mL 150 mg IM [id number] 03/30/24 03/30/24 intramuscular suspension (Depo-Provera) Allergies Allergy/AdvReac Type Severity Reaction Status Date / Time celecoxib Allergy Hives Verified 02/07/24 07:20 hydrocortisone Allergy Unknown Verified 02/07/24 07:20 Review of Systems Review of Systems: All systems reviewed & are unremarkable except as noted in HPI and below PMFSH Past Medical History Medical History Ovarian cyst Surgical History Surgical History H/O ovarian cystectomy Family History Family History Grandparent Diabetes mellitus Hypertension Mother Hypertension Father Depression Alcoholism Social History Social History Smoking packs per day: 1 Smoking cigarettes per day: 20.0 Years smoked: 1 Smoking pack-years: 1.00 Smoking status: Current every day smoker Tobacco type: e-cigarettes/vaping Alcohol intake: never Substance use: current Substance use type: marijuana Do You Feel Safe in your Home?: Yes Lack of Transportation: No Lack of Food: Never True Current Housing: I Have Housing Concerned About Future Housing: No Difficulty Paying Gas/Electric Bills: No Difficulty Paying for Meds: No Currently Unemployed: No Education: Decline to Answer Difficulty w/ Childcare or Family Care: No Gender identity (if verbalized by the patient): Female Spiritual care concerns: No Exam Narrative: White female patient with moderate distress, tearful.? Head normocephalic, atraumatic.? Eyes conjunctiva pink sclera nonicteric.? Extraocular movements are intact.? Ears externally normal.? Oropharynx is clear with moist mucous membranes without exudates.? Neck is supple nontender no lymphadenopathy.? Back is nontender.? Lungs are clear.? Heart is regular rate and rhythm without murmurs gallops or rubs.? Chest wall nontender. 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 Abdomen is soft and nontender no hepatosplenomegaly or masses no CVA tenderness no abdominal bruits.? Extremities no cyanosis clubbing or edema.? Skin is warm and dry without rashes or lesions.? Neurological patient is alert and oriented x4.? Motor and sensory grossly intact.? Gait is normal. Course Vital Signs Vital signs: Vital Signs Temperature 36.5 C 03/30/24 23:31 Pulse Rate 112 H 03/30/24 23:31 Respiratory Rate 18 03/30/24 23:31 Blood Pressure 135/106 H 03/30/24 23:31 Pulse Oximetry 97 03/30/24 23:31 Oxygen Delivery Room Air 03/30/24 23:31 Temperature 36.5 C 03/30/24 23:31 Pulse Rate 112 H 03/30/24 23:31 Respiratory Rate 18 03/30/24 23:31 Blood Pressure 135/106 H 03/30/24 23:31
[2024-03-31] MEDS: KETOROLAC 30 MG/ML VIAL (*BKC) IM (00:12)
[2024-03-31 00:22] VITALS: BP 115/78; PULSE 87; RESP 18; TEMP 36.9; O2SAT 98
== END 2024-03-31 00:28 | disposition home or self-care (01) ==
PROVIDERS: Emergency Provider Emergency Medicine
DX: M54.41 Lumbago with sciatica, right side (principal); F17.210 Nicotine dependence, cigarettes, uncomplicated
CPT/HCPCS: 96372; 99283; J1885

== ENCOUNTER 2024-04-11 17:15 | Outpatient (CLI) | payer OTHER, SELFPAY | END 2024-04-11 17:16 | disposition home or self-care (01) | LOC: ANHLAB 17:17 | PROVIDERS: Visit Provider Obstetrics & Gynecology | DX: N83.209 Unspecified ovarian cyst, unspecified side (principal); Z01.818 Encounter for other preprocedural examination | CPT/HCPCS: 36415; 86850; 86900; 86901 ==

== ENCOUNTER 2024-04-13 00:53 | Day surgery (SDC) | payer OTHER, SELFPAY ==
[2024-04-04 12:04] VITALS: BMI 26.6
--- NOTE | 2024-04-04 12:05 | PC.NURSE ---
Addendum entered by Lewis Villalobos RN 04/06/24 15:23: Surgery date 04-13-2024, arrive at 130pm for surgery at 330pm. Original Note: Report to the Outpatient Waiting Room, entrance under the green pavilion located off [facility], at time _0730_ on date _[id number]_. Planned Procedure Time: _0930_.? Time changes happen often and if your time is changed the preop area will call you the afternoon before. - You and your visitor will be asked to self-screen and do not enter if you have any COVID symptoms. Please call surgeon if you need to reschedule. - A mask is optional within the hospital at this time. Patients may have clear liquids (water, carbonated beverages, clear teas, apple juice) until 3 hours prior to surgery with a maximum of 20 ounces. - No food from midnight until time of surgery and no smoking Take only the following medications with a SIP of water on the morning of surgery___Tramadol if needed. DO NOT STOP ANY OF YOUR OTHER PRESCRIPTION MEDICATIONS PRIOR TO SURGERY EXCEPT THE FOLLOWING Medications to discontinue per physician ____None Please no make-up, nail nepali, hairspray, perfume, deodorant, or body powder the day of surgery.? No jewelry (including any body piercings) or valuables the day of surgery, leave them at home.? Please take a shower or bath the night before, or the morning of, surgery with an antibacterial soap.? Wear comfortable, loose fitting clothing.? - Jewelry must be removed prior to entering the operating room.? Rings and piercings that are not removed may be cut off. - The hospital will not accept responsibility for valuables.? - Please leave all valuables, including medications, at home the day of surgery. If you are going home after surgery, a licensed test driver must drive you home.? - NO public transportation without another adult if you receive anesthesia. - We recommend that an adult stay with you for 24 hours following discharge. - We also recommend that you do not drive, make important decision, drink alcoholic beverages, or take any drugs that were not prescribed by your health care provider for at least 24 hours after your discharge time. Follow any additional instructions given to you from your surgeon. Telephone instructions given to ___Kylee__and asked if any additional questions and then verbalized understanding. Patient advised to call surgeon office or pre surgery nurse liaison [phone] if any additional questions.
--- NOTE | 2024-04-12 07:30 | P.HP_ITS ---
H&P: HPI History of Present Illness Date/Time: 04/12/24 07:30 Chief Complaint: Pelvic pain with complex right cyst Narrative: 23 old 1 para 1 female admitted for laparoscopy with right ovarian cystectomy and possible right oophorectomy. 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 Risks and benefits reviewed including not exclusive of , aspiration, bleeding, transfusion, perforation injury to bowel, bladder, ureters, or other internal organs with need for open laparotomy. She received the [employer] handout entitled laparoscopy. She had all questions answered. She asked to proceed. [facility] Past Medical History Medical History Ovarian cyst Surgical History Surgical History H/O ovarian cystectomy Family History Family History Grandparent Diabetes mellitus Hypertension Mother Hypertension Father Depression Alcoholism Social History Social History Smoking packs per day: 1 Smoking cigarettes per day: 20.0 Years smoked: 2 Smoking pack-years: 2.00 Smoking status: Current every day smoker Tobacco type: cigarettes Alcohol intake: never Substance use: current Substance use type: marijuana Other substance usage details: hs daily Do You Feel Safe in your Home?: Yes Lack of Transportation: No Lack of Food: Never True Current Housing: I Have Housing Concerned About Future Housing: No Difficulty Paying Gas/Electric Bills: No Difficulty Paying for Meds: No Currently Unemployed: No Education: Decline to Answer Difficulty w/ Childcare or Family Care: No Living arrangements: with family Gender identity (if verbalized by the patient): Female Spiritual care concerns: No Meds Home Medications and Allergies Home Medications Medication Instructions Recorded Confirmed Type medroxyprogesterone 150 mg/mL 150 mg IM [id number] 03/30/24 04/04/24 History intramuscular suspension (Depo-Provera) tramadol 50 mg tablet 50 mg PO . t.i.d. PRN pain #12 tabs 03/31/24 04/04/24 Rx cyclobenzaprine 10 mg tablet 10 mg PO TID PRN Spasms 04/04/24 04/04/24 History Allergies Allergy/AdvReac Type Severity Reaction Status Date / Time celecoxib Allergy Hives Verified 04/04/24 11:59 hydrocortisone Allergy Unknown Verified 04/04/24 11:59 Exam Const: General: cooperative, healthy appearing and comfortable Nutritional Appearance: average body habitus Orientation/consciousness: oriented to person, oriented to place and oriented to time Resp: Effort & Inspection: normal respiratory effort Cardio: Rate: regular rate Rhythm: regular rhythm Heart sounds: S1 normal heart sound present and S2 normal heart sound present GI: Inspection: normal to inspection : External Female Exam: normal external appearance Speculum Exam - Vagina: normal appearance of the vagina Speculum Exam - Cervix: normal appearance of the cervix Bimanual exam- vagina & uterus: uterine size normal and non-tender Bimanual Exam- Adnexa, other: Adnexal mass present on the right tender Assessment and Plan Assessment and plan (1) Right ovarian cyst: Code(s): N83.201 - Unspecified ovarian cyst, right side Status: Acute Assessment and Plan: Proceed with laparoscopic right cystectomy and possible oophorectomy
[2024-04-13] VITALS (8 sets, daily range): BP systolic 106–129; BP diastolic 66–85; PULSE 52–79; RESP 12–26; TEMP 36.2; O2SAT 100
--- NOTE | 2024-04-13 06:34 | WPDHPUPDATE1 ---
History and Physical Update Update Date/Time: 04/13/24 06:34 History and Physical has been reviewed, including an updated exam of the patient. There are NO changes in the patient's condition. Risks, benefits, and alternatives have been discussed and questions answered. Patient agrees to proceed with procedure.
[2024-04-13] MEDS: ACETAMINOPHEN 500 MG TABLET 1000 MG PO (13:00)
[2024-04-13] MEDS: LACTATED RINGERS 1,000 ML 30 ML IV CONT ×2 (13:10→14:50)
[2024-04-13] MEDS: KETOROLAC 15 MG/ML VIAL (*BKC) IV PUSH (13:13)
--- NOTE | 2024-04-13 13:20 | P.PNAN_ITS ---
Anes - Initial Pre Proc Eval Procedure: Operation Date: 04/13/24 14:30 Proposed Procedures p Laparoscopy with Right Ovarian Cystectomy - Andrew Anthony MD Date/Time: 04/13/24 13:20 Surgeon: Andrew Anthony MD Pre Op Diagnosis: Pelvic Pain, Right Ovarian Mass Patient Data Age: 23 Gender: F Height: 1.68 m Weight: 75 kg Allergies Allergy/AdvReac Type Severity Reaction Status Date / Time celecoxib Allergy Hives Verified 04/13/24 12:44 hydrocortisone Allergy Unknown Verified 04/13/24 12:44 Home Medications Medication Instructions Recorded Confirmed Type medroxyprogesterone 150 mg/mL 150 mg IM [id number] 03/30/24 04/13/24 History intramuscular suspension (Depo-Provera) tramadol 50 mg tablet 50 mg PO . t.i.d. PRN pain #12 tabs 03/31/24 04/13/24 Rx cyclobenzaprine 10 mg tablet 10 mg PO TID PRN Spasms 04/04/24 04/13/24 History hydrocodone 5 mg-acetaminophen 325 1 tablet PO Q4H PRN pain #20 tabs 04/13/24 Rx mg tablet hydrocodone 5 mg-acetaminophen 325 1 tablet PO Q4H PRN pain #20 tabs 04/13/24 Rx mg tablet Patient hx anesthesia problems: none Family hx anesthesia problems: none Results Review: All pre-operative results and documents have been reviewed as part of the pre- operative evaluation. [facility] Past Medical History Medical History Ovarian cyst Surgical History Surgical History H/O ovarian cystectomy Family History Family History Grandparent Diabetes mellitus Hypertension Mother Hypertension Father Depression Alcoholism Social History Social History Smoking packs per day: 1 Smoking cigarettes per day: 20.0 Years smoked: 2 Smoking pack-years: 2.00 Smoking status: Current every day smoker Tobacco type: cigarettes Alcohol intake: never Substance use: current Substance use type: marijuana Other substance usage details: hs daily Do You Feel Safe in your Home?: Yes Lack of Transportation: No Lack of Food: Never True Current Housing: I Have Housing Concerned About Future Housing: No Difficulty Paying Gas/Electric Bills: No Difficulty Paying for Meds: No Currently Unemployed: No Education: Decline to Answer Difficulty w/ Childcare or Family Care: No Living arrangements: with family Gender identity (if verbalized by the patient): Female Spiritual care concerns: No Anes - Eval Final PreProcedure Day of Procedure 04/13/24 13:20 Patient weight: normal Heart: regular rate and rhythm Lungs: clear to auscultation Airway: Mallampati scale class II Neurological: alert and oriented Last oral intake: >/= 8 hours ASA classification: II Emergent: no Anesthetic plan: proceed Anesthesia type and monitoring: general ETT and standard monitoring Results Review: All pre-operative results and documents have been reviewed as part of the pre- operative evaluation. Smoker 1ppd, marijuana smoker daily, at bedtime. Informed Consent: The patient's anesthetic plan and its attendant risks and benefits were discussed with the patient/family/POA. Questions were solicited and answers provided to the satisfaction of the patient/family/POA.
[2024-04-13 13:29] LABS: BEDSIDEPREGUCG Negative (Negative)
--- NOTE | 2024-04-13 14:43 | P.OP_ITS ---
Procedure Note - Detailed Date of Procedure 04/13/24 Pre-op Diagnosis Pelvic Pain, Right Ovarian Mass Post-op Diagnosis Same Procedure Performed Laparoscopic right cystectomy Surgeon Andrew Anthony MD Anesthesia General Indications 23-year-old female with a complex right ovarian cyst that appears to be a d ermoid Findings a right dermoid cyst normal-appearing ovary and tube on the opposite side repair uterus Description of Procedure the patient was prepped draped in normal sterile fashion placed dorsal lithotomy position. Under excellent general trach anesthesia weighted speculum placed in posterior fornix. Anterior lip of cervix grasped with single-tooth tenaculum Wyatt's cannula inserted the cervix attached to the single-tooth. This would be used later for uterine manipulation. The bladder emptied of clear urine the weighted speculum was removed. The gloves were changed. An infraumbilical incision made the Veress needle passed in the abdomen. Abdomen filled with CO2 gas 15mmHg. The 5mm trocar advanced under direct visualization assuring no injury. Patient placed in Trendelenburg and a suprapubic incision made. The 5mm trocar advanced under direct visualization assuring no injury. An ovarian cyst was seen and right lower quadrant incision made. The 5mm trocar advanced under direct visualization using monopolar cautery this was opened in linear fashion and the base was scooped at out serially cauterizing until the entirety of the dermoid cyst was removed. This was removed through the right lower quadrant. Irrigation undertaken until clear. The no other abnormalities were seen blood loss was estimated 5cc. The gas removed from the abdomen and the trocars removed. The incisions closed with 4 Monocryl and glue. The instruments removed from the vagina the patient was awakened. She went recovery in satisfactory condition. All sponge, needle, instrument counts were correct. There were no immediate complications Estimated Blood Loss 5 Drains No Packing No Pathology Yes Complications No immediate complications Condition Stable Disposition PACU
[2024-04-13] MEDS: ONDANSETRON INJ 4 MG/2 ML VIAL IV PUSH (15:05)
[2024-04-13] MEDS: fentaNYL CITRATE INJ (*CRX) 100 MCG/2 ML VIAL 25 MCG IV PUSH ×3 (15:33→15:45)
[2024-04-13] MEDS: oxyCODONE HCL (*CRX) 5 MG TAB IR PO (16:06)
== END 2024-04-13 16:45 | disposition home or self-care (01) ==
PROVIDERS: Visit Provider Obstetrics & Gynecology
PROC: (CPT 49320; principal; 2024-04-13 14:30)
DX: D27.0 Benign neoplasm of right ovary (principal); F17.210 Nicotine dependence, cigarettes, uncomplicated; F12.90 Cannabis use, unspecified, uncomplicated; Z79.891 Long term (current) use of opiate analgesic; Z98.890 Other specified postprocedural states
CPT/HCPCS: 58662; 88305; A9270; J0330; J1100; J1885; J2003; J2250; J2405; J2704; J3010; J7120

== ENCOUNTER 2025-01-14 14:48 | Outpatient (CLI) | payer OTHER, SELFPAY ==
--- OUTSIDE RECORDS SUMMARY | 2025-01-14 14:54 | XMS_ITS | Patient Health Record ---
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 Name Role Phone Spencer Bourne Unavailable [phone] Reason For Referral No Information Medications Medication SIG (Take, Route, Fr equency, Duration) Notes Start Date End Date Status DULoxetine HCl 60 MG Oral 2019 Active DULoxetine HCl 30 MG Oral 2019 Active Immunizations Vaccine Route Administration Date Status Comme nts Influenza virus vaccine, quadrivalent (IIV4), split virus, 0.25 mL dosage Unknown 03/20/2019 Administered Plan Of Treatment No Information Insurance Providers Payer Name Payer Address Payer Phone Subscriber Number Group Number Insured Name Patient Relationship to Insured Coverage Start Date Coverage End Date [facility] [address] [place] [address] [id number] KIERRAAMALIA RIP Laura Child - Insured has Financial Responsibility Medical (General) History Surgical History Surgery Date(Month/Year) Procedure on ovary ([id number])
--- OUTSIDE RECORDS SUMMARY | 2025-01-14 14:54 | XMS_ITS | Referral Summary ---
Author Organization [facility] Address [address] [place] [address] Care Team Providers Care Passenger Representative Name Role Phone Unknown, Notinfile Primary Care Provider Unavail able Allergies Active Allergy Reactions Criticality Noted Date Comments Nsaids (Non-Steroidal Anti-I nflammatory Drug) Anaphylaxis High 01/06/2024 Medications acetaminophen (TYLENOL) 500 mg tabletIndication s:Back Pain Take 1 tablet (500 mg total) by mouth every 6 (six) hours as needed for pain Active Active Problems No known active problems Social History Tobacco Use Types Packs/Day Years Used Date Smoking Tobacco: Every Day Cigarettes Tobacco Cessation:Ready to Q uit: Not Asked; Counseling Given: Not Answered AUDIT-C Answer Date Recorded Q1: How often do you have a drink containing alc ohol? Never 01/06/2024 Average Number of Drinks Not on file 024 Frequency of Binge Drinking Not on file 12/18 Overall Financial Resource Strain (CARDIA) Answe r Date Recorded How hard is it for you to pa y for the very basics like food, housing, medical care, and heating? Not very hard 01/06/2024 [facility] - Occupational Stress Questionnaire Answer Date Recorded Do you feel stress - tense, restless, nervous, or anxious, or unable to sleep at night because your mind is troubled all the time - these days? Not at all 01/06/2024 PRAPARE - Transportation Answer Date Re corded In the past 12 months, has l ack of transportation kept you from medical appointments or from getting medications? No 01/06/2024 Lack of Transportation (Non-Medical) Not on file 01/06/2024 Housing Stability Vital Sign Answer Randall e Recorded In the last 12 months, was t here a time when you were not able to pay the mortgage or rent on time? 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
--- OUTSIDE RECORDS SUMMARY | 2025-01-14 14:54 | XMS_ITS | Clinical Summary ---
Author Organization [facility] Address [address] [place] [address] Care Team Providers Care Quarryman Name Role Phone Unknown, Notinfile Primary Care Provider Unavail able Allergies Active Allergy Reactions Criticality Noted Date Comments Nsaids (Non-Steroidal Anti-I nflammatory Drug) Anaphylaxis High 01/06/2024 Medications acetaminophen (TYLENOL) 500 mg tabletIndication s:Back Pain Take 1 tablet (500 mg total) by mouth every 6 (six) hours as needed for pain Active Active Problems No known active problems Medical History Medical History Date Comments Scoliosis has had two surg eries Social History Tobacco Use Types Packs/Day Years [...] care, and heating? 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 Gender Identity Not on file Sexual Orientation Not on file Obstetrics History Plan of Treatment Health Maintenance Due Date Last Done Comments Cervical Cancer Screening 2001 Depression Screening 2001 Hepatitis C Screening 2001 Pneumococcal vaccine <65 (1 of 1 - PPSV23) 2007 02/11/2003, 01/02/2002 Meningococcal B Vaccine (1 o f 2 - Standard) 2017 Regular Well Visit/Exam 18-64 2019 Influenza Vaccine (#1) 2025 8, 08/06/2015, 07/05/2013 DTaP/Tdap/Td Vaccine (8 - Td or Tdap) 01/13/2032 01/12/2022, 07/05/2013, 02/03/2007, Additional history exists Hepatitis B Screening Completed 02/13/2004 , 02/11/2003, 01/02/2002 Varicella Vaccines Completed 07/05/2013, 03/12/2004 HPV Vaccines Completed 01/03/2017, 07/05/[address] [place] [address] [place] [address] [place] [address] Care Teams Quarryman Relationship Specialty Start Date End Date Unknown, Notinfile PCP - General 01/06/24
== END 2025-01-14 14:49 | disposition home or self-care (01) ==
LOC: ANHSURGERY 14:52
PROVIDERS: Visit Provider Obstetrics & Gynecology
DX: N83.201 Unspecified ovarian cyst, right side (principal)
CPT/HCPCS: 36415; 86850; 86900; 86901

== ENCOUNTER 2025-01-17 01:13 | Day surgery (SDC) | payer OTHER, SELFPAY ==
[2025-01-08 12:59] VITALS: BMI 33.7
--- NOTE | 2025-01-08 13:08 | SUR.PREOP ---
Report to the Outpatient Waiting Room, entrance under the green pavilion located off [facility], at time 10:15a.m. on date 01/17/2025. Planned Procedure Time: 1215p.m..? Time changes happen often and if your time is changed the preop area will call you the afternoon before. - You and your visitor will be asked to self-screen and do not enter if you have any COVID symptoms. Please call surgeon if you need to reschedule. - A mask is optional within the hospital at this time. Patients may have clear liquids (water, carbonated beverages, clear teas, apple juice) until 3 hours prior to surgery with a maximum of 20 ounces. - No food from midnight until time of surgery and no smoking, or chewing tobacco (or any form of nicotine). No chewing gum, candy or mints. Take only the following medications with a SIP of water on the morning of surgery: N/A DO NOT STOP ANY OF YOUR OTHER PRESCRIPTION MEDICATIONS PRIOR TO SURGERY EXCEPT THE FOLLOWING Hold all vitamins and supplements for 3 days per anesthesiologist. Medications to discontinue per physician N/A Date to take last dose N/A Please no make-up, nail malaysian, hairspray, perfume, deodorant, or body powder the day of surgery.? No jewelry (including any body piercings) or valuables the day of surgery, leave them at home.? Please take a shower or bath the night before, or the morning of, surgery with an antibacterial soap.? Wear comfortable, loose fitting clothing.? Children are encouraged to wear pajamas. - Jewelry must be removed prior to entering the operating room.? Rings and piercings that are not removed may be cut off. - The hospital will not accept responsibility for valuables.? - Please leave all valuables, including medications, at home the day of surgery. If you are going home after surgery, a licensed armored car driver must drive you home.? - NO public transportation without another adult if you receive anesthesia. - We recommend that an adult stay with you for 24 hours following discharge. - We also recommend that you do not drive, make important decision, drink alcoholic beverages, or take any drugs that were not prescribed by your health care provider for at least 24 hours after your discharge time. Follow any additional instructions given to you from your surgeon. Telephone instructions given to Leanna Smalls and asked if any additional questions and then verbalized understanding. Patient advised to call surgeon office or pre surgery nurse liaison [phone] if any additional questions.
--- NOTE | 2025-01-16 06:52 | PM.IMHP ---
H&P: HPI History of Present Illness Date/Time: 01/16/25 06:52 Chief Complaint: Pelvic pain cyst Narrative: This is 4-year-old 1 para admitted for diagnostic laparoscopy and right cystectomy lysis of adhesions secondary to severe pelvic pain right ovarian cyst she has had negative STI testing. Ultrasound shows right-sided ovarian cyst risks and benefits of this procedure reviewed including exclusive of , aspiration pneumonia, bleeding, transfusion, perforation injury to bowel, bladder, ureters, or other internal organs with no for open laparotomy. She had all questions answered and asked to proceed Review of Systems Review of Systems: All systems reviewed & are unremarkable except as noted in HPI and below PMFSH Past Medical History Medical History Ovarian cyst Surgical History Surgical History H/O ovarian cystectomy Family History Family History Grandparent Diabetes mellitus Hypertension Mother Hypertension Father Depression Alcoholism Social History Social History Smoking packs per day: 1 Smoking cigarettes per day: 20.0 Years smoked: 4 Smoking pack-years: 4.00 Smoking status: Current every day smoker Tobacco type: cigarettes Alcohol intake: never Substance use: current Substance use type: marijuana Other substance usage details: Once or Twice Daily Do You Feel Safe in your Home?: Yes Lack of Transportation: No Lack of Food: Never True Current Housing: I Have Housing Concerned About Future Housing: No Difficulty Paying Gas/Electric Bills: No Difficulty Paying for Meds: No Currently Unemployed: No Education: Decline to Answer Difficulty w/ Childcare or Family Care: No Living arrangements: with family Gender identity (if verbalized by the patient): Female Spiritual care concerns: No Meds Home Medications and Allergies Allergies Allergy/AdvReac Type Severity Reaction Status Date / Time NSAIDS (Non-Steroidal Allergy Severe Itching Verified 01/08/25 12:57 Anti-Inflamma hydrocortisone Allergy Unknown Verified 01/08/25 12:57 Exam Const: General: cooperative, healthy appearing and comfortable Nutritional Appearance: average body habitus Orientation/consciousness: oriented to person, oriented to place and oriented to time HENMT: Head: normal to inspection Resp: Effort & Inspection: normal respiratory effort Cardio: Rate: regular rate Rhythm: regular rhythm Heart sounds: S1 normal heart sound present and S2 normal heart sound present GI: Inspection: normal to inspection GI Palp: Yes abdominal tenderness : External Female Exam: normal external appearance Speculum Exam - Vagina: normal appearance of the vagina Speculum Exam - Cervix: normal appearance of the cervix Bimanual exam- vagina & uterus: soft Bimanual Exam- Adnexa, other: tender bilaterally Assessment and Plan Assessment and plan (1) Pelvic pain: Code(s): R10.2 - Pelvic and perineal pain Status: Acute (2) Ovarian cyst: Code(s): N83.209 - Unspecified ovarian cyst, unspecified side Status: Resolved Plan Proceed with laparoscopy right cystectomy possible lysis of adhesions
[2025-01-17] VITALS (10 sets, daily range): BP systolic 108–141; BP diastolic 51–84; PULSE 52–83; RESP 12–20; TEMP 36.8–37.3; O2SAT 100
--- OUTSIDE RECORDS SUMMARY | 2025-01-17 01:16 | XMS_ITS | Clinical Summary ---
Author Organization [facility] Address [address] [place] [address] Care Team Providers Care Liquor Gallery Operator Name Role Phone Unavailable Primary Care Provider Unavailabl e Social History Tobacco Use Types Packs/Day Years Used Date Smoking Tobacco: Never Assessed Comments Unknown Sex and Gender Information Value Date Recorded Sex Assigned at Not on file Legal Sex Female 9:26 PM CDT Gender Identity Not on file Sexual Orientation Not on file Last Filed Vital Signs Vital Sign Reading Time Taken Comments Blood Pressure 122/74 11/05/2015 1:55 PM CDT Pulse - - Temperature - - Respiratory Rate - - Oxygen Saturation - - Inhaled Oxygen Concentration - - Weight 95.6 kg (210 lb 12.8 oz) 09/14/2017 2:40 PM CDT Height 165.7 cm (5' 5.25) 09/14/2017 2:40 PM CD T Body Mass Index 34.81 09/14/2017 2:40 PM CDT Plan of Treatment Health Maintenance Due Date Last Done Comments Cervical Cancer Screening Pa p Smear (Age 21 to 29) Every 3 Years 2001 Cervical Cancer Screening 2001 Annual Physical 2004 HPV Vaccines (1 - 3-dose series) 2016 Meningococcal B Vaccine (1 o f 2 - Standard) 2017 Hepatitis C 2019 DTaP, Tdap and Td Vaccines ( 1 - Tdap) 2020 Hepatitis B Vaccines (1 of 3 - 19+ 3-dose series) 2020 COVID-19 Vaccine ( - 2023-2 5 season) 2024 Meningococcal Vaccine Aged Out No ashley jorge eligible based on patient's age to complete this topic Pneumococcal Vaccine: Pediat rics (0 to 5 Years) and At-Risk Patients (6 to 49 Years) Aged Out No longer eligible b ased on patient's age to complete this topic RSV Immunizations Under 20 Months Aged Out No longer eligible based on patient's age to complete this topic Insurance MEDICAID
--- OUTSIDE RECORDS SUMMARY | 2025-01-17 01:16 | XMS_ITS | Patient Health Record ---
Author Organization [facility] Address [address] [place] [address] Care Team Providers Care Water Valve Mechanic Name Role Phone Spencer Bourne Unavailable [phone] Reason For Referral No Information Medications Medication [...] Insured Coverage Start Date Coverage End Date [facility] [address] [place] [address] [id number] KIERRAAMALIA RIP Laura Child - Insured has Financial Responsibility Medical (General) History Surgical History Surgery Date(Month/Year) Procedure on ovary ([id number])
--- OUTSIDE RECORDS SUMMARY | 2025-01-17 01:16 | XMS_ITS | Referral Summary ---
Author Organization [facility] Address [address] [place] [address] Care Team Providers Care Rn Intake Name Role Phone Unknown, Notinfile Primary Care [...] care, and heating? 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
--- OUTSIDE RECORDS SUMMARY | 2025-01-17 01:16 | XMS_ITS | Encounter Summary ---
Author Organization [facility] Address [address] [place] [address] Care Team Providers Care Buttoner Name Role Phone Unavailable Primary Care Provider Unavailabl e Encounter Details Date Type Department Care Team (Late st Contact Info) Description 09/03/2017 Abstract [facility] [address] [place] [address] , Generic Conversion, Social History Tobacco Use Types Packs/Day Years Used Date Smoking Tobacco: Never Assessed Comments Unknown Sex and Gender Information Value Date Recorded Sex Assigned at Not on file Legal Sex Female 9:26 PM CDT Gender Identity Not on file Sexual Orientation Not on file documented as of this encounter Plan of Treatment Not on file documented as of this encounter Visit Diagnoses Not on filedocumented in this encounter
--- OUTSIDE RECORDS SUMMARY | 2025-01-17 01:16 | XMS_ITS | Clinical Summary ---
Author Organization [facility] Address [address] [place] [address] Care Team Providers Care Hook And Eye Machine Operator Name Role Phone Unknown, Notinfile Primary Care [...] care, and heating? 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
--- NOTE | 2025-01-17 07:06 | WPDHPUPDATE1 ---
History and Physical Update Update Date/Time: 01/17/25 07:06 History and Physical has been reviewed, including an updated exam of the patient. There are NO changes in the patient's condition. Risks, benefits, and alternatives have been discussed and questions answered. Patient agrees to proceed with procedure.
[2025-01-17] MEDS: ACETAMINOPHEN 500 MG TABLET 1000 MG PO (10:20)
--- NOTE | 2025-01-17 10:46 | P.PNAN_ITS ---
Anes - Initial Pre Proc Eval Procedure: Operation Date: 01/17/25 11:45 Proposed Procedures p Laparoscopy with Right Ovarian Cystectomy, Lysis of Adhesions - Andrew Anthony MD Date/Time: 01/17/25 10:46 Surgeon: Andrew Anthony MD Pre Op Diagnosis: right ovarian cyst with pain Patient Data Age: 24 Gender: F Height: 1.52 m Weight: 74.5 kg Last Vital Signs Temp 37.3 C 01/17/25 10:20 Pulse 83 01/17/25 10:20 Resp 16 01/17/25 10:20 BP 123/77 01/17/25 10:20 Pulse Ox 100 01/17/25 10:20 O2 Del Method Room Air 01/17/25 10:20 Allergies Allergy/AdvReac Type Severity Reaction Status Date / Time NSAIDS (Non-Steroidal Allergy Severe Itching Verified 01/17/25 10:26 Anti-Inflamma hydrocortisone Allergy Unknown Verified 01/17/25 10:26 Home Medications ?Medication ?Instructions ?Recorded ?Confirmed ?Type hydrocodone 5 mg-acetaminophen 325 1 tablet PO Q4H PRN pain #20 tabs 01/17/25 Rx mg tablet Patient hx anesthesia problems: none Family hx anesthesia problems: none Results Review: All pre-operative results and documents have been reviewed as part of the pre- operative evaluation. [facility] Past Medical History Medical History Ovarian cyst Surgical History Surgical History H/O ovarian cystectomy Family History Family History Grandparent Diabetes mellitus Hypertension Mother Hypertension Father Depression Alcoholism Social History Social History Smoking packs per day: 1 Smoking cigarettes per day: 20.0 Years smoked: 4 Smoking pack-years: 4.00 Smoking status: Current every day smoker Tobacco type: cigarettes Alcohol intake: never Substance use: current Substance use type: marijuana Other substance usage details: Once or Twice Daily Do You Feel Safe in your Home?: Yes Lack of Transportation: No Lack of Food: Never True Current Housing: I Have Housing Concerned About Future Housing: No Difficulty Paying Gas/Electric Bills: No Difficulty Paying for Meds: No Currently Unemployed: No Education: Decline to Answer Difficulty w/ Childcare or Family Care: No Living arrangements: with family Gender identity (if verbalized by the patient): Female Spiritual care concerns: No Anes - Eval Final PreProcedure Day of Procedure 01/17/25 10:46 Patient weight: obese Heart: regular rate and rhythm Lungs: clear to auscultation Airway: Mallampati scale class 1 Neurological: alert and oriented Last oral intake: >/= 8 hours ASA classification: II Emergent: no Anesthetic plan: proceed Anesthesia type and monitoring: general GIVS and standard monitoring Results Review: All pre-operative results and documents have been reviewed as part of the pre- operative evaluation. Informed Consent: The patient's anesthetic plan and its attendant risks and benefits were discussed with the patient/family/POA. Questions were solicited and answers provided to the satisfaction of the patient/family/POA.
--- NOTE | 2025-01-17 12:56 | W.PM.PROC2 ---
Procedure Note - Detailed Date of Procedure 01/17/25 Pre-op Diagnosis right ovarian cyst with pain Post-op Diagnosis Same (Bilateral ovarian Cyst with pelvic adhesions) Procedure Performed Laparoscopy with destruction bilateral ovarian cysts lysis of adhesions Surgeon Andrew Anthony MD Anesthesia General Indications 24-year-old 1 para 1 pelvic pain bilateral ovarian cysts Findings Bilateral ovarian cysts simple in nature. Tubes. Pelvic adhesions each ovary to lateral sidewalls. Normal-appearing Appendix gallbladder liver Description of Procedure The patient was prepped and draped in the normal sterile fashion placed in this dorsal lithotomy position. Under excellent general trach anesthesia weighted speculum placed in the posterior fornix of the vagina. The anterior lip of cervix grasped with single-tooth tenaculum and the Wyatt's cannula inserted attached to the single-tooth to be used later for uterine manipulation. After emptying the bladder clear urine the weighted speculum was removed and the gloves were changed. An infraumbilical incision made the Veress needle passed in the abdomen. Abdomen filled with CO2 gas was 15mmHg. The 5mm trocar advanced under direct visualization assuring no injury. Multiple adhesions were seen on from the left and right ovary her tubal complexes to the ovarian fossa. These were sharply dissected and relieved adhesions were seen from the colon to the posterior cul-de-sac and these were sharply dissected as well. Two small ovarian cysts were seen each the right left ovary and these were drained of follicular fluid irrigation was undertaken until clear the uterus was then mobile as were adnexa. Normal-appearing tubes uterus appendix and gallbladder were seen and photo documentation undertaken. The lower sites removed. The gas removed from the abdomen. The upper sites removed. The incisions closed with 4-0 Monocryl and glue. The patient went to recovery in satisfactory condition. All sponge, needle, instrument counts were correct. There were no immediate complications Estimated Blood Loss 5 Drains No Packing No Pathology None sent Complications No immediate complications Condition Stable Disposition PACU
[2025-01-17] MEDS: LACTATED RINGERS 1,000 ML 30 ML IV CONT ×2 (13:05→13:40)
[2025-01-17] MEDS: fentaNYL CITRATE INJ (*CRX) 100 MCG/2 ML VIAL 25 MCG IV PUSH ×8 (13:15→14:06)
[2025-01-17] MEDS: ONDANSETRON INJ 4 MG/2 ML VIAL IV PUSH (13:52)
[2025-01-17] MEDS: oxyCODONE HCL (*CRX) 5 MG TAB IR PO (14:31)
== END 2025-01-17 15:08 | disposition home or self-care (01) ==
PROVIDERS: Visit Provider Obstetrics & Gynecology
PROC: (CPT 49320; principal; 2025-01-17 11:45)
DX: N83.202 Unspecified ovarian cyst, left side (principal); N83.201 Unspecified ovarian cyst, right side; N73.6 Female pelvic peritoneal adhesions (postinfective); R10.2 Pelvic and perineal pain; F17.210 Nicotine dependence, cigarettes, uncomplicated; F12.90 Cannabis use, unspecified, uncomplicated; E66.9 Obesity, unspecified; Z68.32 Body mass index [BMI] 32.0-32.9, adult
CPT/HCPCS: 58662; A9270; J0461; J1100; J2003; J2250; J2405; J2704; J3010; J7120